=== PATIENT | male | born 1950 | race Caucasian/White ===

== ENCOUNTER → 2017-03-13 | Day surgery (SDC) | payer BC ==
[~2017-03-13] MED LIST: NO MEDICATIONS; PROTONIX PO
--- NOTE | ~2017-03-13 | OR ---
Unit #: [id number] #: [id number] Patient: MORENO ELIZALDE [id number] [address] [place], [place] [address] [id number] O MR#: [id number] NAME: MORENO ELIZALDE ROOM: Date of Procedure: 03/13/2017 Admission Date: 03/13/2017 Surgeon: Bart Garcia M.D. : 1950 Attending Physician: Bart Garcia M.D. Primary Care Physician: Jasmin Pratt A.P.R.N. OPERATIVE REPORT PROCEDURES PERFORMED Esophagogastroduodenoscopy with biopsy and colonoscopy to cecum. INDICATIONS FOR PROCEDURE A 66-year-old gentleman with history of colon polyps, history of Spence esophagus, peptic ulcer disease, and GERD symptoms, undergoing evaluation with upper endoscopy and colonoscopy. MEDICATIONS Monitored anesthesia. POSTOPERATIVE FINDINGS 1. Small segment of Spence esophagus. Biopsies were taken. 2. Chronic appearing gastritis, biopsies were taken. 3. Pyloric deformity; however, the opening was much better open than in the past. 4. Normal colon. 5. Good prep. 6. Diverticulosis. PLAN Continue PPI therapy. Repeat colonoscopy in 5 years. Repeat upper endoscopy in 3 years. DESCRIPTION OF PROCEDURE The patient was explained of the procedure, risks, and benefits along with the risks and benefits of anesthesia. He was brought to the endoscopy room. Propofol anesthesia was given. Bite block was placed. The scope was passed down the mouth into esophagus, stomach, duodenum, and distal duodenum. Findings as described. Biopsies were taken. Gently, I pulled the scope out of the patient's mouth. He tolerated it well. At this point, he was turned around and repositioned for colonoscopy. Rectal exam was done, which was normal. Colonoscope was lubricated, passed up the rectum, advanced under direct vision all the way to the cecum. Cecum was identified by ileocecal valve and appendiceal orifice and then I started to pull the scope out carefully looking. No polyps, masses, or colitis were seen. I retroflexed in the rectum, small hemorrhoids were seen. The scope was gently pulled out. He tolerated it well. Dictated by... Bart Garcia M.D. Unit #: [id number] #: [id number] Patient: MORENO ELIZALDE JERMAIN/ezra TD: 03/13/2017 18:11 JOB #: [id number] OPERATIVE REPORT Page 1 of 1 X Bart Garcia MD PROCEDURE OPERATIVE NOTE
== END | disposition home or self-care (01) ==
LOC: COPS 07:10
DX: K22.70 Barrett's esophagus without dysplasia (principal); K29.50 Unspecified chronic gastritis without bleeding; Q40.3 Congenital malformation of stomach, unspecified; K57.30 Diverticulosis of large intestine without perforation or abscess without bleeding; K21.9 Gastro-esophageal reflux disease without esophagitis; Z87.11 Personal history of peptic ulcer disease; Z86.010 Personal history of colon polyps; K64.9 Unspecified hemorrhoids; Z88.0 Allergy status to penicillin
CPT/HCPCS: 88305; 88312